=== PATIENT | female | born 1960 | race African-American/Black ===

== ENCOUNTER 2017-08-13 07:37 | Emergency (ER) | payer BC, MEDICARE ==
[~2017-08-13] VITALS: Ht 165.1 cm; Wt 130.0 kg
[~2017-08-13 07:37] MED LIST: ASPI81TA81; BLOOD GLUCOSE T1 TES; DULO20 PO; FURO20TA PO; GABA600T PO; INSU1MIS36; LANTUS2P SQ; LEVO100T5 PO; LISI10TA3 PO; MIRA33504 PO; MISC-289; NEBUKIT5; NEBULIZER1 MI1; NOVORP2 SQ; OXYC1TAB36 PO; PRAV40TA2 PO; VENTAER INH; Z.0.WALKERBAR TD; ZIPR40 PO
[2017-08-13 07:39] VITALS: BP 145/68; PULSE 86; RESP 16; TEMP 100; O2SAT 96
--- NOTE | 2017-08-13 07:59 | PD ---
HPI Chief Complaint: Cold / Flu Symptoms Time Seen by Provider: 07:57 Travel History International Travel<30 days: No Contact w/Intl Traveler<30days: No Traveled to known affect area: No History of Present Illness HPI 56-year-old female presents to the emergency Department with complaint of cough , nasal congestion, sinus congestion and pressure 2 days. Denies fever, vomiting. Denies ear pain or sore throat. Denies chest pain, shortness of breath. Has taken NyQuil for symptomatic management. Has not tried any other treatments or medications to relieve her symptoms. No known aggravating factors. Symptoms are mild in severity. Has no medical complaints. Allergies as listed on the patient's chart. Denies being allergic to acetaminophen. Has no other medical complaints. No other modifying factors or associated signs and symptoms. PFSH Past Medical History Hx Anticoagulant Therapy: Yes Asthma: No Atrial Fibrillation: Yes Blood Disorders: No Bipolar Disorder: Yes Anxiety: Yes Depression: Yes Heart Rhythm Problems: No Cancer: No Cardiovascular Problems: Yes High Cholesterol: No Chest Pain: Yes (hx) Congestive Heart Failure: No COPD: No Cerebrovascular Accident: No Diabetes: Yes Diminished Hearing: No Endocrine: Yes GERD: No Glaucoma: No Genitourinary: No Headaches: Yes Hepatitis: No Hiatal Hernia: No Hypertension: Yes Immune Disorder: No Kidney Stones: No Musculoskeletal: No Neurologic: No Psychiatric: Yes Respiratory: No Myocardial Infarction: No Renal Failure: No Seizures: No Sleep Apnea: Yes Thyroid Disease: Yes (TX'D RADIOACTIVE NO SURGERY) Ulcer: No Menopausal: Yes : 5 Para: 5 Ovarian Cysts: Yes Tubal Ligation: Yes Past Surgical History Abdominal Surgery: No AICD: No Cardiac Surgery: No Ear Surgery: No Endocrine Surgery: No Eye Surgery: No Genitourinary Surgery: No Gynecologic Surgery: Yes (HYSTERECTOMY) Hysterectomy: Yes Joint Replacement: No Oral Surgery: No Pacemaker: No Thoracic Surgery: No Other Surgery: Yes Social History Alcohol Use: No Tobacco Use: No Substance Use: Yes Allergies-Medications (Allergen,Severity, Reaction): Coded Allergies: acetaminophen (Verified Allergy, Severe, HIVES, 08/13/17) amoxicillin (Verified Allergy, Severe, BLISTERS, 08/13/17) clavulanic acid (Verified Allergy, Severe, BLISTERS, 08/13/17) promethazine (Verified Allergy, Severe, HIVES, 08/13/17) propoxyphene (Verified Allergy, Severe, HIVES, 08/13/17) Uncoded Allergies: FLEMFOR (Allergy, Severe, 12/03/07) Jehovah witness, requests only cell saved blood (Allergy, Unknown, 01/06/15) Reported Meds & Prescriptions Reported Meds & Active Scripts Active Furosemide 20 Mg Tab 10 Mg PO DAILY Pravastatin 40 Mg Tab 40 Mg PO DAILY Levothyroxine (Levothyroxine Sodium) 100 Mcg Tab 100 Mcg PO DAILY Novolin R Inj (Insulin Human Regular) 1,000 Unit/10 Ml Vial 30 Units SQ TIDAC IMPORTANT TO EAT A MEAL WITHIN 30-60 MINUTES OF DOSING. Add this dose to the needed sliding scale. Novolin R Inj (Insulin Human Regular) 1,000 Unit/10 Ml Vial 2-10 Units SQ DIRECTED PRN sugar 150-199, 2unit; sugar 200-249, 4units; sugar 250-299, 6units; sugar 300-349, 8units; sugar >350, 10units Lantus Inj (Insulin Glargine) 1,000 Unit/10 Ml Vial 60-75 Units SQ DIRECTED 75units in AM and 60units in PM Lisinopril 10 Mg Tab 10 Mg PO DAILY Nebulizer Kit/Tubing/Mout (N/A) 1 Kit Kit 1 Kit .ROUTE DIRECTED Bath Bench with Back (Device) 1 Mis Mis 1 Ea .ROUTE DIRECTED Miralax Powder (Polyethylene Glycol 3350 Powder) 17 Gm Powd 17 Gm PO DAILY Mix and dissolve one measuring cap-ful (17 grams) in water or juice. Advocate Insulin Syringe/ 30G X 5/16" 1 ml (Insulin Syringe/Needle U-100) 1 Mis Mis Box TID Blood Glucose Test Strips 1 Taylor Taylor 1 Ea .ROUTE TID Nebulizer 1 Mis Mis 1 Ea .ROUTE DIRECTED Walker Bariatric (Z.0.walkerbar) Device 1 Unit TD DAILY risk of falling. Reported Cymbalta DR (Duloxetine HCl) 20 Mg Capdr 20 Mg PO DAILY Geodon (Ziprasidone) 40 Mg Cap 40 Mg PO BID Ventolin Hfa 18 GM Inh (Albuterol Sulfate) 90 Mcg/Act Aer 2 Puff INH Q4-6H PRN Aspir-81 (Aspirin) 81 Mg Tabdr Gabapentin 600 Mg Tab 600 Mg PO BID Oxycodone-Acetaminophen 10-325 mg Tab 1 Tab PO BID PRN Review of Systems Except as stated in HPI: all other systems reviewed are Neg Physical Exam Narrative GENERAL: Well-nourished, well-developed black female patient, in no acute distress; low-grade fever 100.0; nontoxic appearing SKIN: Warm and dry. No rash. HEAD: Atraumatic. Normocephalic. EYES: Pupils equal and round. No scleral icterus. No injection or drainage. ENT: Mucosa pink and moist. No erythema or exudates. No uvular edema. No uvular , palatal, or tonsillar deviation. Airway patent. EARS: Bilateral pinnae and external canals appear within normal limits. Bilateral tympanic membranes without erythema, dullness or perforation. NECK: Trachea midline. No lymphadenopathy. CARDIOVASCULAR: Regular rate and rhythm. No murmur appreciated. RESPIRATORY: No accessory muscle use. Clear to auscultation. Breath sounds equal bilaterally. No retractions or tachypnea. GASTROINTESTINAL: Abdomen soft, non-tender, nondistended. Hepatic and splenic margins not palpable. Bowel sounds are active 4 quadrants. MUSCULOSKELETAL: No obvious deformities. No clubbing. No cyanosis. No edema. NEUROLOGICAL: Awake and alert. Oriented 3. No obvious cranial nerve deficits. Motor grossly within normal limits. Normal speech. Moves all extremities. 5/5 strength to all extremities. PSYCHIATRIC: Appropriate mood and affect; insight and judgment normal. Data Data Last Documented VS Vital Signs Date Time Temp Pulse Resp B/P (MAP) Pulse Ox O2 Delivery O2 Flow Rate FiO2 08/13/17 07:39 100.0 86 16 145/68 (93) 96 Room Air Orders Orders Influenzae A/B Antigen (08/13/17 07:56) Chest, Pa & Lat (08/13/17 07:56) Acetaminophen (Tylenol) (08/13/17 08:00) Ibuprofen (Motrin) (08/13/17 08:00) MDM Medical Decision Making Medical Screen Exam Complete: Yes Emergency Medical Condition: Yes Medical Record Reviewed: Yes Differential Diagnosis Pneumonia, influenza, sinusitis, URI Narrative Course 56-year-old female with cold/flu symptoms 2 days. Patient has low-grade fever of 100.0 in the ER. Nontoxic appearing. Denies fever vomiting at home. Denies sore throat. Physical exam is unremarkable. Influenza and chest x-ray ordered. 0846: Chest x-ray with no acute findings. 0855: Influenza negative. Discussed viral illness and symptom management. Instructed patient to follow up with primary care provider. Patient verbalizes understanding and agreement with treatment plan. Patient is medically cleared and stable for discharge. Discussed reasons to return to the emergency department. Patient agrees with treatment plan. The patients vital signs are stable and the patient is stable for outpatient follow-up and treatment. Patient discharged home, stable and in no acute distress. Diagnosis Primary Impression: Viral illness Referrals: Primary Care Physician Patient Instructions: Cold Symptoms (ED), General Instructions, Safe Use of Cough and Cold Medicines (ED) Departure Forms: Tests/Procedures Additional Instructions: Ibuprofen or Tylenol as directed and as needed to reduce fever; may alternate ibuprofen and Tylenol as needed every 3 hours to minimize fever Eomy-oin-remkupv cold/flu medications as directed and as needed for symptom management Get plenty of sleep/rest Drink plenty of fluids to prevent dehydration; such as Gatorade, Powerade, Pedialyte [place] diet to encourage nutrition such as crackers, fruit, applesauce, toast, soup etc. Use an air humidifier/turn off ceiling fans Follow-up with your primary care provider within 1 day Return immediately to the emergency department with worsening of symptoms Med/Other Pt SpecificInfo: Prescription(s) given Scripts Benzonatate (Tessalon Perles) 100 Mg Cap 100 MG PO TID Y for COUGH for 3 Days, CAP 0 Refills Prov: Karol Johnson 08/13/17 Mometasone Nasal [place] (Nasonex Nasal [place]) 50 Mcg/Act Naspr 2 SPRAY EACH NARE DAILY Y for NASAL CONGESTION, #1 BOTTLE 0 Refills Prov: Karol JohnsonP 08/13/17 Disposition: DISCHARGE HOME Condition: Stable Karol Johnson Aug 13, 2017 07:59
[2017-08-13] MEDS ORDERED: ACETAMINOPHEN 325 MG TAB PO ONE (08:00)
[2017-08-13] MEDS ORDERED: IBUPROFEN 600 MG TAB PO ONE (08:00)
--- NOTE | 2017-08-13 08:43 | RADRPT ---
EXAM DATE/TIME: 08/13/2017 08:34 [facility] COMPARISON: No previous studies available for comparison. INDICATIONS : Short of breath with cough and wheezing. MEDICAL HISTORY : None. SURGICAL HISTORY : None. ENCOUNTER: Initial ACUITY: 2 days PAIN SCORE: 0/10 LOCATION: Bilateral chest FINDINGS: No significant focal pleural or parenchymal opacities. Cardiac silhouette is in the upper limits of n ormal in size. Osseous structures are intact. CONCLUSION: 1. No acute cardiopulmonary disease. Bruno Garcia MD on August 13, 2017 at 8:41 Board Certified Radiologist. This report was verified electronically.
[2017-08-13] MEDS ORDERED: MOME17I EACH NARE (08:58)
[2017-08-13] MEDS ORDERED: BENZ100 PO (08:58)
[2017-09-02] MEDS ORDERED: INFL1INJ56 IM (14:14)
[2017-09-02] MEDS ORDERED: PRAV40TA2 PO (14:49)
[2017-09-02] MEDS ORDERED: FURO20TA PO (14:49)
[2017-09-02] MEDS ORDERED: NOVORP2 SQ ×2 (14:49)
[2017-09-02] MEDS ORDERED: LISI10TA3 PO (14:49)
[2017-09-02] MEDS ORDERED: LEVO100T5 PO (14:49)
== END 2017-08-13 09:21 | disposition home or self-care (01) ==
LOC: NEPK 07:37
DX: B34.9 Viral infection, unspecified (principal); I48.91 Unspecified atrial fibrillation; Z79.01 Long term (current) use of anticoagulants; I10 Essential (primary) hypertension; E11.9 Type 2 diabetes mellitus without complications; G47.30 Sleep apnea, unspecified
CPT/HCPCS: 71020; 87804; 99284